=== PATIENT | male | born 1960 | race African-American/Black ===

== ENCOUNTER 2017-01-18 12:08 | Emergency (ER) | payer MEDICAID ==
[~2017-01-18] VITALS: Ht 170.2 cm; Wt 94.3 kg
[2017-01-18 12:28] VITALS: BP 140/84
--- NOTE | 2017-01-18 12:52 | PHYS DOC ---
Adult General Chief Complaint Chief Complaint: LACERATION/AVULSION [facility] HPI Patient is a 56 year old male since emergency Department with a laceration to his left forearm. He states that he fell on the steps and hit. He is unsure when his last tetanus immunization occurred. He states that this occurred last night around 9:00 PM. There is no bleeding coming from the area. No tenderness. Patient is right hand dominant. Review of Systems Review of Systems Constitutional: Denies fever or chills [] Eyes: Denies change in visual acuity, redness, or eye pain [] HENT: Denies nasal congestion or sore throat [] Respiratory: Denies cough or shortness of breath [] Cardiovascular: No additional information not addressed in HPI [] GI: Denies abdominal pain, nausea, vomiting, bloody stools or diarrhea [] : Denies dysuria or hematuria [] Musculoskeletal: Denies back pain or joint pain [] Integument: Denies rash or skin lesions. Laceration to left forearm Neurologic: Denies headache, focal weakness or sensory changes [] Endocrine: Denies polyuria or polydipsia [] Current Medications Current Medications Current Medications Medications (Trade) Dose Ordered Sig/Joseph Start Time Stop Time Status Last Admin Dose Admin Diphtheria/ Tetanus/Acell Pertussis (Boostrix) 0.5 ml ONCE ONCE 01/18/17 13:00 01/18/17 13:01 DC Allergies Allergies Allergies Coded Allergies Type Severity Reaction Last Updated Verified No Known Drug Allergies 01/18/17 No Physical Exam Physical Exam Constitutional: Well developed, well nourished, no acute distress, non-toxic appearance. [] HENT: Normocephalic, atraumatic, bilateral external ears normal, oropharynx moist, no oral exudates, nose normal. [] Eyes: PERRLA, EOMI, conjunctiva normal, no discharge. [] Neck: Normal range of motion, no tenderness, supple, no stridor. [] Cardiovascular:Heart rate regular rhythm Lungs & Thorax: no respiratory distress Skin: Warm, dry, no erythema, no rash. Patient with 5.5 cm laceration noted to the left forearm. No drainage or discharge noted from the laceration. Back: No tenderness Extremities: No tenderness, no cyanosis, no clubbing, ROM intact, no edema. [] Neurologic: Alert and oriented X 3, normal motor function, normal sensory function, no focal deficits noted. [] Psychologic: Affect normal, judgement normal, mood normal. [] EKG EKG [] Radiology/Procedures Radiology/Procedures [] Course & Med Decision Making Course & Med Decision Making Pertinent Labs and Imaging studies reviewed. (See chart for details) Laceration was over 14 hours old. Site was cleaned with Betadine. Site was then Steri-Stripped closed. Patient was provided with discharge instructions, treatment regimens and follow-up recommendations. Signs and symptoms to return back to emergency department as been provided. Patient was encouraged to keep the area clean and dry. Signs and symptoms of infection was: Redness, warmth, tenderness or any yellow/greenish drainage of a come from the site. Patient was instructed to follow-up primary care physician in the next week. [] Dragon Disclaimer Dragon Disclaimer This electronic medical record was generated, in whole or in part, using a voice recognition dictation system. Departure Departure Impression: Primary Impression: Laceration Disposition: 01 HOME, SELF-CARE Condition: STABLE Referrals: NON,STAFF (PCP) Patient Instructions: Laceration Care, Adult, [id number], Stitches, Redfield or Skin Adhesive Strips, [id number] Additional Instructions: Laceration was over 14 hours old when he came to the emergency department. Therefore the area was not sutured as that will cause increased chances of infection. Keep the area clean and dry. Clean the site with soap and water twice a day. Watch for signs and symptoms of infection: Redness, warmth, tenderness or any yellow/greenish drainage of a come from the site if this should happen follow- up to primary care physician immediately. Steri-Strips will fall off in approximately 7-10 days. Return back to emergency prior signs and symptoms of become worse. DEVORA CASH APRN January 18, 2017 12:52
[2017-01-18] MEDS ORDERED: DIPHTH,PERTUSS(ACELL),TET TOX 0.5 ML DISP.SYRIN. VAX IM ONE (13:00)
== END 2017-01-18 13:22 | disposition home or self-care (01) ==
LOC: ER 12:34
DX: S51.812A Laceration without foreign body of left forearm, initial encounter (principal); W10.8XXA Fall (on) (from) other stairs and steps, initial encounter; Y93.89 Activity, other specified; Y99.8 Other external cause status; Y92.89 Other specified places as the place of occurrence of the external cause
CPT/HCPCS: 90471; 90715; 99283-25

== ENCOUNTER 2018-08-13 16:18 | Emergency (ER) | payer MEDICAID ==
[~2018-08-13] VITALS: Ht 170.2 cm; Wt 85.7 kg
[2018-08-13 18:06] VITALS: BP 144/93
--- NOTE | 2018-08-13 19:59 | PHYS DOC ---
Past Medical History Past Medical History: Hypertension Past Surgical History: No Surgical History Alcohol Use: None Drug Use: None Adult General Chief Complaint Chief Complaint: ABSCESS HPI HPI Patient is a 58 year old AA male who presents to the ER with complaints of left ear swelling and pain for the last 4 days. He denies any injury, fever, or difficulty hearing. Pt states he thinks that it started as a spider bite. He reports that his nephew squeezed some pus from the area earlier today. 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 Review of Systems Review of Systems Constitutional: Denies fever or chills [] HENT: Denies nasal congestion or sore throat; see HPI [] Respiratory: Denies cough or shortness of breath [] GI: Denies abdominal pain, nausea, or vomiting Integument: reports redness, swelling, and warmth of left ear x4 days, see HPI Neurologic: Denies headache, focal weakness or sensory changes [] Complete systems were reviewed and found to be within normal limits, except as documented in this note. Current Medications Current Medications Current Medications Medications (Trade) Dose Ordered Sig/Joseph Start Time Stop Time Status Last Admin Dose Admin Lidocaine HCl (Xylocaine-Mpf 1% 2ml Vial) 4 ml 1X ONCE 08/13/18 20:00 08/13/18 20:01 DC 08/13/18 19:59 4 ML Allergies Allergies Allergies Coded Allergies Type Severity Reaction Last Updated Verified No Known Drug Allergies 01/18/17 No Physical Exam Physical Exam Constitutional: Well developed, well nourished, no acute distress, non-toxic appearance. [] HENT: Normocephalic, atraumatic, nose normal. [] Eyes: conjunctiva normal, no discharge. [] Neck: Normal range of motion, no tenderness Skin: Warm, dry; erythema, warmth, and moderate swelling of left external ear with 2 cm abscess noted anterior to tragus with centralized fluctuance, surrounding localized erythema and warmth extending to the anterior pinna and face Neurologic: Alert and oriented X 3, normal motor function, normal sensory function, no focal deficits noted. [] Psychologic: Affect normal, judgement normal, mood normal. [] Current Patient Data Vital Signs Vital Signs Date Time Temp Pulse Resp B/P (MAP) Pulse Ox O2 Delivery O2 Flow Rate FiO2 12/20/18 18:06 97.9 80 16 144/93 (110) 98 Room Air 97.9 EKG EKG [] Radiology/Procedures Radiology/Procedures Indication: facial abscess Procedure: The patient was positioned appropriately. Local anesthesia was 4 ml of 1% lidocaine An incision was then made over the apex of the lesion and a moderate amount of bloody pus material was expressed. xeroform gauze was used to apply pressure to the anterior pinna and gauze was applied over the xeroform , the site was then wrapped with kerlix. The patient tolerated the procedure well. Complications: none.[] Course & Med Decision Making Course & Med Decision Making Pertinent Labs and Imaging studies reviewed. (See chart for details) I&D of abscess as described in procedures. Prescriptions written for clindamycin and hydrocodone. Pt was instructed to leave dressing in place until re-examination in the ER in 28 hours. Patient verbalized an understanding of home care, medications, follow-up, and return to ED instructions and was in agreement with the plan of care. [] Dragon Disclaimer Dragon Disclaimer This electronic medical record was generated, in whole or in part, using a voice recognition dictation system. Departure Departure Impression: Primary Impression: Abscess of external ear, left Additional Impressions: Cellulitis of left pinna Facial abscess Disposition: 01 HOME, SELF-CARE Condition: STABLE Referrals: NON,STAFF (PCP) Patient Instructions: Abscess, Care After, Cellulitis, [id number] Additional Instructions: Keep the dressing that was placed in the ER in place until you return to the ER on Friday for wound recheck. Fill the prescriptions and use as directed. Return to the ER sooner if your symptoms worsen. Scripts Hydrocodone Bit/Acetaminophen (HYDROCODONE-APAP 5-325 ) 1 Tab Tablet 1 TAB PO PRN Q6HRS PRN for PAIN for 2 Days, #8 TAB 0 Refills Prov: GAVIN ROCHE LOST [employer] C[employer] CLERK 08/13/18 Clindamycin Hcl (CLINDAMYCIN HCL) 150 Mg Capsule 450 MG PO TID for 10 Days, #90 CAP 0 Refills Prov: GAVIN ROCHE [employer] C[employer] CLERK 08/13/18 Problem Qualifiers GAVIN ROCHE LOST [employer] CARD CLERK Aug 13, 2018 19:59
[2018-08-13] MEDS ORDERED: LIDOCAINE 1% PF 2 ML VIAL. INJ ONE (20:00)
[2018-08-13] MEDS ORDERED: CLIN150C14 PO (20:37)
[2018-08-13] MEDS ORDERED: HYDR-2761 PO (20:37)
== END 2018-08-13 20:51 | disposition home or self-care (01) ==
LOC: ER 16:18
DX: H66.42 Suppurative otitis media, unspecified, left ear (principal); H60.12 Cellulitis of left external ear; L02.01 Cutaneous abscess of face; I10 Essential (primary) hypertension
CPT/HCPCS: 69000; 99284-25

== ENCOUNTER 2018-08-15 11:15 | Emergency (ER) | payer MEDICAID ==
[~2018-08-15] VITALS: Ht 167.6 cm; Wt 85.7 kg
[~2018-08-15 11:15] MED LIST: CLIN150C14 PO; HYDR-2761 PO
--- NOTE | 2018-08-15 13:40 | PHYS DOC ---
Past Medical History Past Medical History: Hypertension Past Surgical History: No Surgical History Alcohol Use: None Drug Use: None Adult General Chief Complaint Chief Complaint: WOUND RECHECK/SUTURE REMOVAL [facility] Patient is a 58 year old male who presents with a need for a wound recheck. The patient was seen here recently with an abscess. He states that he was told to come back and have it checked. He denies any problems. Review of Systems Review of Systems Constitutional: Denies fever or chills [] Respiratory: Denies cough or shortness of breath [] Cardiovascular: No additional information not addressed in HPI [] GI: Denies abdominal pain, nausea, vomiting, bloody stools or diarrhea [] : Denies dysuria or hematuria [] Musculoskeletal: Denies back pain or joint pain [] Integument: See history of present illness Neurologic: Denies headache, focal weakness or sensory changes [] Endocrine: Denies polyuria or polydipsia [] All other systems were reviewed and found to be within normal limits, except as documented in this note. Allergies Allergies Allergies Coded Allergies Type Severity Reaction Last Updated Verified No Known Drug Allergies 01/18/17 No Physical Exam Physical Exam Constitutional: Well developed, well nourished, no acute distress, non-toxic appearance. [] Cardiovascular:Heart rate regular rhythm, no murmur [] Lungs & Thorax: Bilateral breath sounds clear to auscultation [] Abdomen: Bowel sounds normal, soft, no tenderness, no masses, no pulsatile masses. [] Skin: 0.5 cm abscess that is healing just proximal to the left ear Back: No tenderness, no CVA tenderness. [] Extremities: No tenderness, no cyanosis, no clubbing, ROM intact, no edema. [] Neurologic: Alert and oriented X 3, normal motor function, normal sensory function, no focal deficits noted. [] Psychologic: Affect normal, judgement normal, mood normal. [] Current Patient Data Vital Signs Vital Signs Date Time Temp Pulse Resp B/P (MAP) Pulse Ox O2 Delivery O2 Flow Rate FiO2 08/15/18 13:50 97.8 85 18 145/97 (113) 97 Room Air 97.8 EKG EKG [] Radiology/Procedures Radiology/Procedures [] Course & Med Decision Making Course & Med Decision Making Pertinent Labs and Imaging studies reviewed. (See chart for details) [] Dragon Disclaimer Dragon Disclaimer This electronic medical record was generated, in whole or in part, using a voice recognition dictation system. Departure Departure Impression: Primary Impression: Facial abscess Disposition: 01 HOME, SELF-CARE Condition: STABLE Referrals: UNKNOWN PCP NAME (PCP) Additional Instructions: Continue your medications. Keep the wound clean and dry. Follow-up with your primary care provider for recheck in one week or return to the emergency department if worsening. FISH SALMON APRN Aug 15, 2018 13:39
[2018-08-15 13:50] VITALS: BP 145/97
== END 2018-08-15 14:20 | disposition home or self-care (01) ==
LOC: ER 11:15
DX: L02.01 Cutaneous abscess of face (principal); I10 Essential (primary) hypertension
CPT/HCPCS: 99281

== ENCOUNTER 2019-04-23 14:59 | Inpatient (IN) | payer MEDICAID, OTHER ==
[~2019-04-23] VITALS: Ht 170.2 cm; Wt 80.3 kg
[2019-04-23] MEDS ORDERED: IV NORMAL SALINE 1000ML BAG 1,000 ML IV SCH (15:43)
[2019-04-23] MEDS ORDERED: MULTIVIT INFUSN,ADULT 4,VIT K 10 ML, THIAMINE INJ 100 MG, FOLIC ACID INJ 1 MG in IV NOR... IV SCH (16:00)
--- NOTE | 2019-04-23 16:01 | PHYS DOC ---
Past Medical History Past Medical History: Depression, Hypertension Past Surgical History: No Surgical History Alcohol Use: None Drug Use: None Adult General Chief Complaint Chief Complaint: MECHANICAL FALL HPI HPI Patient is a 59 year old Male who presents with chronic alcoholism and had been drinking today when he was on his way to work today he got off the bus and stumbled and fell and hit his head on the curb. Patient has a 1 mm superficial cut to the left scalp of his head. Only history in the computer is EtOH and hypertension. Patient is not on blood thinners. Patient wakes to sternal rub. Review of Systems Review of Systems Constitutional: EtOH intoxication. Denies fever or chills [] Eyes: Denies change in visual acuity, redness, or eye pain [] HENT: Denies nasal congestion or sore throat [] Respiratory: Denies cough or shortness of breath [] Cardiovascular: No additional information not addressed in HPI [] GI: Denies abdominal pain, nausea, vomiting, bloody stools or diarrhea [] : Denies dysuria or hematuria [] Musculoskeletal: Denies back pain or joint pain [] Integument: Superficial small laceration to the left scalp. Denies rash or skin lesions [] Neurologic: Denies headache, focal weakness or sensory changes [] All other systems were reviewed and found to be within normal limits, except as documented in this note. Current Medications Current Medications Current Medications Medications (Trade) Dose Ordered Sig/[facility] Start Time Stop Time Status Last Admin Dose Admin Multivitamins 10 ml/Thiamine HCl 100 mg/Folic Acid 1 mg/Sodium Chloride 1,011.2 ml @ 1,000 mls/ hr Q1H 04/23/19 16:00 04/23/19 17:37 DC 04/23/19 17:37 1,000 MLS/HR Sodium Chloride 1,000 ml @ 1,000 mls/hr Q1H 04/23/19 15:43 04/23/19 16:42 DC 04/23/19 17:37 1,000 MLS/HR Allergies Allergies Allergies Coded Allergies Type Severity Reaction Last Updated Verified No Known Drug Allergies 01/18/17 No Physical Exam Physical Exam Constitutional: Well developed, well nourished, no acute distress, non-toxic appearance. EtOH intoxication. [] HENT: Normocephalic, atraumatic, bilateral external ears normal, oropharynx moist, no oral exudates, nose normal. [] Eyes: Pinpoint bilaterally. PERRLA, EOMI, conjunctiva normal, no discharge. [] Neck: Normal range of motion, no tenderness, supple, no stridor. [] Cardiovascular:Heart rate regular rhythm, no murmur [] Lungs & Thorax: Bilateral breath sounds clear to auscultation [] Abdomen: Bowel sounds normal, soft, no tenderness, no masses, no pulsatile masses. [] Skin: Warm, dry, no erythema, no rash. [] Back: No tenderness, no CVA tenderness. [] Extremities: No tenderness, no cyanosis, no clubbing, ROM intact, no edema. [] Neurologic: Drowsy, normal motor function, normal sensory function, no focal d eficits noted. [] Psychologic: Affect normal, judgement abnormal, mood normal. [] Current Patient Data Vital Signs Vital Signs Date Time Temp Pulse Resp B/P (MAP) Pulse Ox O2 Delivery O2 Flow Rate FiO2 04/23/19 16:52 82 94 04/23/19 15:04 98.6 16 116/80 (92) Room Air 98.6 Lab Values Laboratory Tests Test 04/23/19 16:40 White Blood Count 3.9 x10^3/uL (4.0-11.0) L Red Blood Count 4.54 x10^6/uL (4.30-5.70) Hemoglobin 13.9 g/dL (13.0-17.5) Hematocrit 41.7 % (39.0-53.0) Mean Corpuscular Volume 92 fL (79-100) Mean Corpuscular Hemoglobin 31 pg (25-35) Mean Corpuscular Hemoglobin Concent 33 g/dL (31-37) Red Cell Distribution Width 16.4 % (11.5-14.5) H Platelet Count 184 x10^3/uL (140-400) Neutrophils (%) (Auto) 54 % (31-73) Lymphocytes (%) (Auto) 34 % (24-48) Monocytes (%) (Auto) 9 % (0-9) Eosinophils (%) (Auto) 3 % (0-3) Basophils (%) (Auto) 1 % (0-3) Neutrophils # (Auto) 2.1 x10^3/uL (1.8-7.7) Lymphocytes # (Auto) 1.3 x10^3/uL (1.0-4.8) Monocytes # (Auto) 0.4 x10^3/uL (0.0-1.1) Eosinophils # (Auto) 0.1 x10^3/uL (0.0-0.7) Basophils # (Auto) 0.0 x10^3/uL (0.0-0.2) Prothrombin Time 13.0 SEC (11.7-14.0) Prothrombin Time INR 1.0 (0.8-1.1) Activated Partial Thromboplast Time 26 SEC (24-38) Sodium Level 146 mmol/L (136-145) H Potassium Level 3.7 mmol/L (3.5-5.1) Chloride Level 108 mmol/L (98-107) H Carbon Dioxide Level 26 mmol/L (21-32) Anion Gap 12 (6-14) Blood Urea Nitrogen 11 mg/dL (8-26) Creatinine 0.9 mg/dL (0.7-1.3) Estimated GFR (Cockcroft-Gault) 104.2 BUN/Creatinine Ratio 12 (6-20) Glucose Level 144 mg/dL (70-99) H Calcium Level 8.8 mg/dL (8.5-10.1) Total Bilirubin 0.1 mg/dL (0.2-1.0) L Aspartate Amino Transferase (AST) 23 U/L (15-37) Alanine Aminotransferase (ALT) 23 U/L (16-63) Alkaline Phosphatase 91 U/L (46-116) Troponin I Quantitative < 0.017 ng/mL (0.000-0.055) Total Protein 7.0 g/dL (6.4-8.2) Albumin 3.4 g/dL (3.4-5.0) Albumin/Globulin Ratio 0.9 (1.0-1.7) L Ethyl Alcohol Level 110 mg/dL (0-10) H Laboratory Tests 04/23/19 16:40 Laboratory Tests 04/23/19 16:40 EKG EKG Sinus Rhythm and no STEMI Interpretation Time: [address] Black Radiology/Procedures Radiology/Procedures [] Impressions: [facility] [address] [place] [address] IMAGING REPORT Signed PATIENT: GUILLERMO ALFONSO ACCOUNT: [id number] : 1960 LOCATION: ER AGE: 59 SEX: M EXAM STATUS: REG ER ORD. PHYSICIAN: DEVORA WATERS APRN REASON: ams PROCEDURE: PORTABLE CHEST 1V PORTABLE CHEST 1V Clinical indications: Altered mental status. COMPARISON: None available. Findings: No acute lung infiltrate or pleural effusion or pulmonary edema or lung mass or pneumothorax is seen. The heart size, pulmonary vasculature, mediastinum and both moiz are unremarkable. Old healed bilateral clavicular fractures are seen. Impression: No acute radiographic abnormality is seen. Electronically signed by: David Hughes MD (04/23/2019 4:02 PM) [facility] DICTATED and SIGNED BY: DAVID HUGHES MD DATE: 04/23/19 1602 [facility] [address] [place], [place] [id number] IMAGING REPORT Signed PATIENT: GUILLERMO ALFONSO ACCOUNT: [id number] : 1960 LOCATION: ER AGE: 59 SEX: M EXAM STATUS: REG ER ORD. PHYSICIAN: DEVORA WATERS APRN REASON: ams, fall PROCEDURE: CT HEAD AND CERVICAL SPINE WO Examination: CT HEAD AND CERVICAL SPINE WO History: Fall, altered mental status, pain Comparison/Correlation: None Findings: Axial images of the head and cervical spine were obtained without contrast. Sagittal and coronal reformatted images of cervical spine were provided. Atrophy is present. No intracranial hemorrhage, midline shift, or mass effect. Cavernous carotid calcifications are present. Globes and optic nerves are unremarkable. Deformity of the right medial orbital wall is evident compatible with old fracture. Advanced degenerative changes of the atlantoaxial joint are present. Mild reversal cervical lordosis is evident. Spurring at the anterior aspect of the mid cervical spine noted. Mild C6-7 and C7-T1 disc space narrowing is present. Mild spinal canal stenosis at C6-7 noted with central disc osteophyte complex with effacement of the thecal sac. Possibility of mild effacement of the spinal cord is raised. Bony encroachment on neural foramina bilaterally is evident from C5 to C7 with significant neural foraminal narrowing more so on the left. No acute fracture or bony destruction. Soft tissues of neck are unremarkable. Emphysematous involvement of the partially visualized lung apices is noted. Impression: No intracranial hemorrhage. Advanced degenerative changes of the cervical spine. No fracture or bony destruction. Possibility of mild effacement of the spinal cord at C6/7 is raised due central disc osteophyte complex. Correlate with MRI if able on a nonemergent basis if clinically warranted. PQRS Compliance Statement: One or more of the following individualized dose reduction techniques were utilized for this examination: 1. Automated exposure control 2. Adjustment of the mA and/or kV according to patient size 3. Use of iterative reconstruction technique Electronically signed by: Anthony Walker MD (04/23/2019 4:30 PM) [facility] DICTATED and SIGNED BY: ANTHONY WALKER MD DATE: 04/23/19 1630 [facility] [address] [place] [address] IMAGING REPORT Signed PATIENT: GUILLERMO ALFONSO ACCOUNT: [id number] : 1960 LOCATION: ER AGE: 59 SEX: M EXAM STATUS: REG ER ORD. PHYSICIAN: DEVORA WATERS APRN REASON: ams, fall PROCEDURE: CT LUMBAR SPINE WO CONTRAST CT THORACIC SPINE WO CONTRAST, CT LUMBAR SPINE WO CONTRAST History: Altered mental status. History of trauma. Pain. Technique: Noncontrast CT was performed of the thoracic and lumbar spine. Multiplanar reconstructions were performed. Exposure: One or more of the following individualized dose reduction techniques were utilized for this examination: 1. Automated exposure control 2. Adjustment of the mA and/or kV according to patient size 3. Use of iterative reconstruction technique. Comparison: None Findings: Thoracic spine CT: Normal vertebral body height. No fracture. Normal alignment. Mild multilevel thoracic spondylosis. No significant canal or neuroforaminal narrowing. Partially imaged lower cervical spondylosis. Represent dedicated report. Calcified left lower lobe granuloma. Small hiatal hernia. Lumbar spine CT: Normal vertebral body height and alignment. No fracture. Prior left first and second transverse process fractures. T12-L1: No canal or neuroforaminal narrowing. L1-L2: Small posterior disc bulge. Mild facet arthropathy. No canal or neuroforaminal narrowing. L2-L3: Small posterior disc bulge. Mild facet arthropathy. No canal or neuroforaminal narrowing. L3-L4: Broad-based posterior disc bulge with central disc protrusion. Mild canal narrowing. Mild facet arthropathy. Mild bilateral neural foraminal narrowing. L4-L5: Broad-based posterior disc bulge. Bilateral subarticular recess narrowing. No canal narrowing. Mild facet arthropathy. Mild bilateral neural foraminal narrowing. L5-S1: Disc height loss. Vacuum disc phenomenon. Posterior disc bulge. Mild facet arthropathy. No canal narrowing. Moderate bilateral neural foraminal narrowing. Impression: [facility] [address] [place] [address] IMAGING REPORT Signed PATIENT: GUILLERMO ALFONSO ACCOUNT: [id number] : 1960 LOCATION: ER AGE: 59 SEX: M EXAM STATUS: REG ER ORD. PHYSICIAN: DEVORA WATERS APRN REASON: ams, fall PROCEDURE: CT LUMBAR SPINE WO CONTRAST CT THORACIC SPINE WO CONTRAST, CT LUMBAR SPINE WO CONTRAST History: Altered mental status. History of trauma. Pain. Technique: Noncontrast CT was performed of the thoracic and lumbar spine. Multiplanar reconstructions were performed. Exposure: One or more of the following individualized dose reduction techniques were utilized for this examination: 1. Automated exposure control 2. Adjustment of the mA and/or kV according to patient size 3. Use of iterative reconstruction technique. Comparison: None Findings: Thoracic spine CT: Normal vertebral body height. No fracture. Normal alignment. Mild multilevel thoracic spondylosis. No significant canal or neuroforaminal narrowing. Partially imaged lower cervical spondylosis. Represent dedicated report. Calcified left lower lobe granuloma. Small hiatal hernia. Lumbar spine CT: Normal vertebral body height and alignment. No fracture. Prior left first and second transverse process fractures. T12-L1: No canal or neuroforaminal narrowing. L1-L2: Small posterior disc bulge. Mild facet arthropathy. No canal or neuroforaminal narrowing. L2-L3: Small posterior disc bulge. Mild facet arthropathy. No canal or neuroforaminal narrowing. L3-L4: Broad-based posterior disc bulge with central disc protrusion. Mild canal narrowing. Mild facet arthropathy. Mild bilateral neural foraminal narrowing. L4-L5: Broad-based posterior disc bulge. Bilateral subarticular recess narrowing. No canal narrowing. Mild facet arthropathy. Mild bilateral neural foraminal narrowing. L5-S1: Disc height loss. Vacuum disc phenomenon. Posterior disc bulge. Mild facet arthropathy. No canal narrowing. Moderate bilateral neural foraminal narrowing. Impression: 1. No acute fracture or subluxation of the thoracolumbar spine. 2. Multilevel lumbar spondylosis most prominent L5-S1. 3. Moderate bilateral L5-S1 neural foraminal narrowing. Electronically signed by: Azar Márquez DO (04/23/2019 4:56 PM) [facility] DICTATED and SIGNED BY: AZAR MÁRQUEZ DO DATE: 04/23/191655 Electronically signed by: Azar Márquez DO (04/23/2019 4:56 PM) [facility] DICTATED and SIGNED BY: AZAR MÁRQUEZ DO DATE: 04/23/191655 Course & Med Decision Making Course & Med Decision Making Patient is a 59 year old Male who presents with chronic alcoholism and had been drinking today when he was on his way to work today he got off the bus and stumbled and fell and hit his head on the curb. Patient has a 1 mm superficial cut to the left scalp of his head. Only history in the computer is EtOH and hypertension. Patient is not on blood thinners. Patient wakes to sternal rub. Pupils are pinpoint bilaterally but are equal and reactive. Patient is sleeping in the room but can be awakened with sternal rub but he merely falls back to sleep. Patient will start to answer some of my questions but fall back asleep. No pain to palpation of the cervical, lumbar, thoracic spine patient denies neck or back pain. Patient denied abdominal pain. Abdomen is soft and nontender. There is no bruising seen to the abdomen or ribs. Lungs are clear to auscultati on all lobes. Ribs are palpated and there is no crepitus or deformity felt. Vital signs are within normal limits. No pain was elicited with palpation to bilateral lower and upper extremities and there were no deformities or abrasions seen. There is no bruising to the back or the neck seen. Negative Valerio sign. Tympanic membranes are intact bilaterally and pearly white, no discharge coming from the ears bilaterally. No discharge from the nose. No deformity or bruising to the face or head. No pain is elicited to the face with palpation there is no swelling. No laceration seen in the mouth or missing teeth. No laceration to lip or swelling to the lips. EMS states the patient is not on blood thinners. Patient is unable to answer all of my questions due to intoxication and drowsiness. Patient is unable to answer my questions such as location of pain, head ache, dizziness, weaknesses, chest pain, shortness of air, visual changes, numbness or tingling, abdominal pain, back pain, neck pain. Chest xray shows no acute findings. CT head and cervical spine show No intracranial hemorrhage. Advanced degenerative changes of the cervical spine. No fracture or bony destruction. Possibility of mild effacement of the spinal cord at C6/7 is raised due central disc osteophyte complex. Correlate with MRI if able on a nonemergent basis if clinically warranted. CT Lumbar Sacral 1. No acute fracture or subluxation of the thoracolumbar spine. 2. Multilevel lumbar spondylosis most prominent L5-S1. 3. Moderate bilateral L5-S1 neural foraminal narrowing. Patient's alcohol level is 110. Blood work otherwise unremarkable. I have spoken to Dr. Lane and patient be admitted for altered mental status. I will consult neurology. Patient remains altered. When I sternal rubbed him he will moan but does not wake up. Superficial cut to scalp is cleaned with chlorhexidine and covered with a bandage. Dragon Disclaimer Dragon Disclaimer This electronic medical record was generated, in whole or in part, using a voice recognition dictation system. 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
--- NOTE | 2019-04-23 16:05 | RAD ---
PORTABLE CHEST 1V Clinical indications: Altered mental status. COMPARISON: None available. Findings: No acute lung infiltrate or pleural effusion or pulmonary edema or lung mass or pneumothorax is seen. The heart size, pulmonary vasculature, mediastinum and both moiz are unremarkable. Old healed bilateral clavicular fractures are seen. Impression: No acute radiographic abnormality is seen. Electronically signed by: Tomy Hughes MD (04/23/2019 4:02 PM) [facility]
--- NOTE | 2019-04-23 16:11 | EKG ---
[facility] [address] [place] [address] Test Date: 2019-04-23 Test Time: 16:02:32 Pat Name: GUILLERMO ALFONSO Department: Room: Gender: M Skein Tier: : 1960 Requested By: DEVORA WATERS Order Number: [id number] Reading MD: Measurements Intervals [place] Rate: 79 P: 47 RI: 234 QRS: 10 QRSD: 86 T: 39 QT: 374 QTc: 430 Interpretive Statements SINUS RHYTHM PROLONGED RI INTERVAL LOW LIMB LEAD VOLTAGE ABNORMAL ECG RI6.01 No previous ECG available for comparison
--- NOTE | 2019-04-23 16:33 | RAD ---
Examination: CT HEAD AND CERVICAL SPINE WO History: Fall, altered mental status, pain Comparison/Correlation: None Findings: Axial images of the head and cervical spine were obtained without contrast. Sagittal and coronal reformatted images of cervical spine were provided. Atrophy is present. No intracranial hemorrhage, midline shift, or mass effect. Cavernous carotid calcifications are present. Globes and optic nerves are unremarkable. Deformity of the right medial orbital wall is evident compatible with old fracture. Advanced degenerative changes of the atlantoaxial joint are present. Mild reversal cervical lordosis is evident. Spurring at the anterior aspect of the mid cervical spine noted. Mild C6-7 and C7-T1 disc space narrowing is present. Mild spinal canal stenosis at C6-7 noted with central disc osteophyte complex with effacement of the thecal sac. Possibility of mild effacement of the spinal cord is raised. Bony encroachment on neural foramina bilaterally is evident from C5 to C7 with significant neural foraminal narrowing more so on the left. No acute fracture or bony destruction. Soft tissues of neck are unremarkable. Emphysematous involvement of the partially visualized lung apices is noted. Impression: No intracranial hemorrhage. Advanced degenerative changes of the cervical spine. No fracture or bony destruction. Possibility of mild effacement of the spinal cord at C6/7 is raised due central disc osteophyte complex. Correlate with MRI if able on a nonemergent basis if clinically warranted. PQRS Compliance Statement: One or more of the following individualized dose reduction techniques were utilized for this examination: 1. Automated exposure control 2. Adjustment of the mA and/or kV according to patient size 3. Use of iterative reconstruction technique Electronically signed by: Anthony Singleton MD (04/23/2019 4:30 PM) [facility]
[2019-04-23 16:45] LABS: BASO % 1 % (0-3); EOS # 0.1 x10^3/uL (0.0-0.7); EOS % 3 % (0-3); HEMATOCRIT 41.7 % (39.0-53.0); HEMOGLOBIN 13.9 g/dL (13.0-17.5); LYMPH # 1.3 x10^3/uL (1.0-4.8); LYMPH % 34 % (24-48); MEAN CORPUSCULAR HEMOGLOBIN 31 pg (25-35); MEAN CORPUSCULAR HGB CONC 33 g/dL (31-37); MEAN CORPUSCULAR VOLUME 92 fL (79-100); MONO # 0.4 x10^3/uL (0.0-1.1); MONO % 9 % (0-9); NEUT # 2.1 x10^3/uL (1.8-7.7); NEUT % 54 % (31-73); PLATELET COUNT 184 x10^3/uL (140-400); RED BLOOD COUNT 4.54 x10^6/uL (4.30-5.70); RED CELL DISTRIBUTION WIDTH 16.4 % (11.5-14.5); WHITE BLOOD COUNT 3.9 x10^3/uL (4.0-11.0)
[2019-04-23 16:56] LABS: CALCIUM 8.8 mg/dL (8.5-10.1); CREATININE 0.9 mg/dL (0.7-1.3); GFR 104.2; POTASSIUM 3.7 mmol/L (3.5-5.1)
--- NOTE | 2019-04-23 16:59 | RAD ---
CT THORACIC SPINE WO CONTRAST, CT LUMBAR SPINE WO CONTRAST History: Altered mental status. History of trauma. Pain. Technique: Noncontrast CT was performed of the thoracic and lumbar spine. Multiplanar reconstructions were performed. Exposure: One or more of the following individualized dose reduction techniques were utilized for this examination: 1. Automated exposure control 2. Adjustment of the mA and/or kV according to patient size 3. Use of iterative reconstruction technique. Comparison: None Findings: Thoracic spine CT: Normal vertebral body height. No fracture. Normal alignment. Mild multilevel thoracic spondylosis. No significant canal or neuroforaminal narrowing. Partially imaged lower cervical spondylosis. Represent dedicated report. Calcified left lower lobe granuloma. Small hiatal hernia. Lumbar spine CT: Normal vertebral body height and alignment. No fracture. Prior left first and second transverse process fractures. T12-L1: No canal or neuroforaminal narrowing. L1-L2: Small posterior disc bulge. Mild facet arthropathy. No canal or neuroforaminal narrowing. L2-L3: Small posterior disc bulge. Mild facet arthropathy. No canal or neuroforaminal narrowing. L3-L4: Broad-based posterior disc bulge with central disc protrusion. Mild canal narrowing. Mild facet arthropathy. Mild bilateral neural foraminal narrowing. L4-L5: Broad-based posterior disc bulge. Bilateral subarticular recess narrowing. No canal narrowing. Mild facet arthropathy. Mild bilateral neural foraminal narrowing. L5-S1: Disc height loss. Vacuum disc phenomenon. Posterior disc bulge. Mild facet arthropathy. No canal narrowing. Moderate bilateral neural foraminal narrowing. Impression: 1. No acute fracture or subluxation of the thoracolumbar spine. 2. Multilevel lumbar spondylosis most prominent L5-S1. 3. Moderate bilateral L5-S1 neural foraminal narrowing. Electronically signed by: Azar Mirza DO (04/23/2019 4:56 PM) [facility]
[2019-04-23 17:02] LABS: ALBUMIN 3.4 g/dL (3.4-5.0); ALBUMIN/GLOBULIN RATIO 0.9 (1.0-1.7); TOTAL BILIRUBIN 0.1 mg/dL (0.2-1.0)
[2019-04-23] MEDS ORDERED: ONDANSETRON PF 4 MG/2 ML VIAL. IV PRN ×2 (17:45→21:00)
[2019-04-23] MEDS ORDERED: ACETAMINOPHEN 325 MG TABLET. PO PRN ×2 (17:45→21:00)
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
[2019-04-23 18:05] LABS: AMPHETAMINE/METHAMPHETAMINE NEG (NEG); BARBITURATES NEG (NEG); BENZODIAZEPINES NEG (NEG); CANNABINOIDS POS (NEG); COCAINE NEG (NEG); METHADONE NEG (NEG); OPIATES NEG (NEG); PHENCYCLIDINE NEG (NEG)
[2019-04-23 18:14] LABS: BILIRUBIN,URINE NEGATIVE (NEG); CLARITY,URINE CLEAR; COLOR,URINE YELLOW; NITRITE,URINE NEGATIVE (NEG); PROTEIN,URINE NEGATIVE (NEG-TRACE); UROBILINOGEN,URINE 0.2 mg/dL (0.2 mg/dL)
[2019-04-23 18:15] LABS: BACTERIA,URINE 0 /HPF (0-FEW); RBC,URINE 0 /HPF (0-2); WBC,URINE 0 /HPF (0-4)
[2019-04-23] MEDS ORDERED: cloNIDine HCL 0.1 MG TABLET PO PRN (21:00)
[2019-04-23] MEDS ORDERED: ALBUTEROL SULFATE 2.5 MG/3 ML NEBU. NEB PRN (21:00)
[2019-04-23] MEDS ORDERED: guaiFENesin ORAL 200 MG/10 ML LIQUID. PO PRN (21:00)
[2019-04-23] MEDS ORDERED: LORazepam 0.5 MG TABLET PO PRN (21:00)
[2019-04-23] MEDS ORDERED: 0.9 % SODIUM CHLORIDE 10 ML DISP.SYRIN. IV PRN (21:00)
[2019-04-23] MEDS ORDERED: ACETAMINOPHEN 650 MG SUPP.RECT. PR PRN (21:00)
[2019-04-23] MEDS ORDERED: DOCUSATE SODIUM 100 MG CAPSULE. PO PRN (21:00)
[2019-04-23 22:30] VITALS: BP 148/93
[2019-04-23] MEDS: IV NORMAL SALINE 1000ML BAG 1,000 ML IV SCH (22:30)
[2019-04-24] MEDS ORDERED: HYDR25TA PO (02:20)
[2019-04-24] MEDS ORDERED: CITA40TA5 PO (02:20)
[2019-04-24] MEDS ORDERED: PHEN100C4 PO (02:20)
[2019-04-24] MEDS ORDERED: ARIP20TA10 PO (02:20)
[2019-04-24] MEDS ORDERED: ALBUTEROL (02:20)
[2019-04-24 03:40] VITALS: BP 139/89
[2019-04-24 07:40] VITALS: BP 139/98
[2019-04-24] MEDS ORDERED: ENOXAPARIN 40 MG/0.4 ML SYRINGE. SQ SCH (09:00)
[2019-04-24] MEDS ORDERED: MULTIVIT INFUSN,ADULT 4,VIT K 10 ML, THIAMINE INJ 100 MG, FOLIC ACID INJ 1 MG in IV NOR... IV SCH (09:00)
[2019-04-24] MEDS: IV NORMAL SALINE 1000ML BAG 1,000 ML IV SCH (09:30)
[2019-04-24 11:30] VITALS: BP 151/101
--- NOTE | 2019-04-24 13:00 | PDOC ---
[employer] PROGRESS NOTE Chief Complaint Chief Complaint EtOH intoxication Laceration on head AMS Fall Hypertension History of Present Illness History of Present Illness 04/24/19 Pt seen/examined at bedside and resting comfortably Pt has a small laceration on his scalp Chart Reviewed DW RN Vitals/I&O Vitals/I&O: Vital Signs Date Time Temp Pulse Resp B/P (MAP) Pulse Ox O2 Delivery O2 Flow Rate FiO2 04/24/19 11:30 97.8 121 19 151/101 (118) 97 Room Air 97.8 I & O 04/23/19 04/23/19 04/24/19 14:59 22:59 06:59 Intake Total 0 ml 0 ml Balance 0 ml 0 ml Physical Exam General: Alert, No acute distress Heart: Regular rate, Normal S1, Normal S2, No murmurs Lungs: Clear Abdomen: Normal bowel sounds, Soft Extremities: No cyanosis Skin: Other (small laceration on scalp) Labs Labs: Laboratory Tests Test 04/23/19 16:40 04/23/19 17:50 04/23/19 21:15 White Blood Count 3.9 x10^3/uL (4.0-11.0) Red Blood Count 4.54 x10^6/uL (4.30-5.70) Hemoglobin 13.9 g/dL (13.0-17.5) Hematocrit 41.7 % (39.0-53.0) Mean Corpuscular Volume 92 fL (79-100) Mean Corpuscular Hemoglobin 31 pg (25-35) Mean Corpuscular Hemoglobin Concent 33 g/dL (31-37) Red Cell Distribution Width 16.4 % (11.5-14.5) Platelet Count 184 x10^3/uL (140-400) Neutrophils (%) (Auto) 54 % (31-73) Lymphocytes (%) (Auto) 34 % (24-48) Monocytes (%) (Auto) 9 % (0-9) Eosinophils (%) (Auto) 3 % (0-3) Basophils (%) (Auto) 1 % (0-3) Neutrophils # (Auto) 2.1 x10^3/uL (1.8-7.7) Lymphocytes # (Auto) 1.3 x10^3/uL (1.0-4.8) Monocytes # (Auto) 0.4 x10^3/uL (0.0-1.1) Eosinophils # (Auto) 0.1 x10^3/uL (0.0-0.7) Basophils # (Auto) 0.0 x10^3/uL (0.0-0.2) Prothrombin Time 13.0 SEC (11.7-14.0) Prothromb Time International Ratio 1.0 (0.8-1.1) Activated Partial Thromboplast Time 26 SEC (24-38) Sodium Level 146 mmol/L (136-145) Potassium Level 3.7 mmol/L (3.5-5.1) Chloride Level 108 mmol/L (98-107) Carbon Dioxide Level 26 mmol/L (21-32) Anion Gap 12 (6-14) Blood Urea Nitrogen 11 mg/dL (8-26) Creatinine 0.9 mg/dL (0.7-1.3) Estimated GFR (Cockcroft-Gault) 104.2 BUN/Creatinine Ratio 12 (6-20) Glucose Level 144 mg/dL (70-99) Calcium Level 8.8 mg/dL (8.5-10.1) Total Bilirubin 0.1 mg/dL (0.2-1.0) Aspartate Amino Transf (AST/SGOT) 23 U/L (15-37) Alanine Aminotransferase (ALT/SGPT) 23 U/L (16-63) Alkaline Phosphatase 91 U/L (46-116) Troponin I Quantitative < 0.017 ng/mL (0.000-0.055) < 0.017 ng/mL (0.000-0.055) Total Protein 7.0 g/dL (6.4-8.2) Albumin 3.4 g/dL (3.4-5.0) Albumin/Globulin Ratio 0.9 (1.0-1.7) Ethyl Alcohol Level 110 mg/dL (0-10) Urine Collection Type Unknown Urine Color Yellow Urine Clarity Clear Urine pH 5.0 Urine Specific [place] 1.010 Urine Protein Negative mg/dL (NEG-TRACE) Urine Glucose (UA) Negative mg/dL (NEG) Urine Ketones (Stick) Negative mg/dL (NEG) Urine Blood Negative (NEG) Urine Nitrite Negative (NEG) Urine Bilirubin Negative (NEG) Urine Urobilinogen Dipstick 0.2 mg/dL (0.2 mg/dL) Urine Leukocyte Esterase Negative (NEG) Urine RBC 0 /HPF (0-2) Urine WBC 0 /HPF (0-4) Urine Bacteria 0 /HPF (0-FEW) Urine Mucus Slight /LPF Urine Opiates Screen Neg (NEG) Urine Methadone Screen Neg (NEG) Urine Barbiturates Neg (NEG) Urine Phencyclidine Screen Neg (NEG) Urine Amphetamine/Methamphetamine Neg (NEG) Urine Benzodiazepines Screen Neg (NEG) Urine Cocaine Screen Neg (NEG) Urine Cannabinoids Screen Pos (NEG) Urine Ethyl Alcohol Pos (NEG) Review of Systems Review of Systems: no co weakness no co nausea Assessment and Plan Assessmemt and Plan Problems Medical Problems: (1) Alcohol intoxication Status: Acute (2) Altered mental status Status: Acute Assessment: EtOH intoxication Laceration AMS Fall Hypertension Plan: Discharge patient home today Continue alcohol withdrawal protocol PT/OT DVT prophylaxis Home Meds Follow up with PCP Appreciate subspeciality input Comment Review of Relevant I have reviewed the following items ina (where applicable) has been applied. Medications: Current Medications Medications (Trade) Dose Ordered Sig/Joseph Route PRN Reason Start Time Stop Time Status Last Admin Dose Admin Multivitamins 10 ml/Thiamine HCl 100 mg/Folic Acid 1 mg/Sodium Chloride 1,011.2 ml @ 1,000 mls/ hr Q1H IV 04/23/19 16:00 04/23/19 17:37 DC 04/23/19 17:37 Sodium Chloride 1,000 ml @ 1,000 mls/hr Q1H IV 04/23/19 15:43 04/23/19 16:42 DC 04/23/19 17:37 Sodium Chloride 1,000 ml @ 100 mls/hr Q10H IV 04/23/19 17:44 04/24/19 17:43 04/24/19 09:30 Multivitamins 10 ml/Thiamine HCl 100 mg/Folic Acid 1 mg/Sodium Chloride 1,011.2 ml @ 125 mls/ hr Q8H6M IV 04/24/19 09:00 04/24/19 17:05 04/24/19 09:30 Enoxaparin Sodium (Lovenox 40mg Syringe) 40 mg DAILY SQ 04/24/19 09:00 04/24/19 09:30 HANNA DEAN III DO Apr 24, 2019 13:00
--- NOTE | 2019-04-24 13:43 | DS ---
DATE OF DISCHARGE: 04/24/2019 ADMISSION DIAGNOSIS: Alcohol intoxication. DISCHARGE DIAGNOSIS: Resolving alcohol intoxication. HOSPITAL COURSE: The patient is a pleasant 59-year-old male who presented with alcohol intoxication. He was admitted. We put him on banana bag and p.r.n. benzos. This morning, I saw him and examined. He is begging to go home. We plan to discharge with close outpatient followup. DISPOSITION: Home. ACTIVITY: As tolerated. DIET: Low sodium. MEDICATIONS: Please see MRAD. TOTAL TIME: 33 minutes. LULUL Hope DEAN DO DR: GERA/ag JOB#: [id number] / [id number]
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
--- NOTE | 2019-04-24 15:01 | NUR ---
Discharge Note: GUILLERMO ALFONSO J6 [facility] Discharge instructions and discharge home medications reviewed with Patient and a copy given. All questions have been answered and understanding verbalized. The following instructions and handouts were given: Alcohol Problems Discontinued lines and drains: Peripheral IV intact. Patient discharged to Home or Self Care with Friend via Wheelchair
== END 2019-04-24 15:04 | disposition home or self-care (01) | DRG 605 ==
LOC: ER 14:59 → 6 SOUTH 17:30
PROVIDERS: ADMIT Family Medicine; ATTEND Family Medicine
DX: S01.01XA Laceration without foreign body of scalp, initial encounter (principal); F10.229 Alcohol dependence with intoxication, unspecified; F12.929 Cannabis use, unspecified with intoxication, unspecified; M47.812 Spondylosis without myelopathy or radiculopathy, cervical region; M47.814 Spondylosis without myelopathy or radiculopathy, thoracic region; I10 Essential (primary) hypertension; K44.9 Diaphragmatic hernia without obstruction or gangrene; M25.78 Osteophyte, vertebrae; M40.50 Lordosis, unspecified, site unspecified; F32.9 Major depressive disorder, single episode, unspecified; M48.02 Spinal stenosis, cervical region; M47.816 Spondylosis without myelopathy or radiculopathy, lumbar region; W01.0XXA Fall on same level from slipping, tripping and stumbling without subsequent striking against object, initial encounter; Z82.49 Family history of ischemic heart disease and other diseases of the circulatory system; Z79.899 Other long term (current) drug therapy; Y93.89 Activity, other specified; Y92.89 Other specified places as the place of occurrence of the external cause; Y99.8 Other external cause status
CPT/HCPCS: 36415; 70450; 71045; 72125; 72128; 72131; 80053; 80307; 81001; 84484; 85025; 85610; 85730; 87040; 93005; 96365; G0480; J1650; J7030; 97535; 99285-25; G0378